=== PATIENT | male | born 1960 | race Caucasian/White ===

== ENCOUNTER 2022-03-28 04:15 | Day surgery (SDC) | payer OTHER ==
[2022-03-26 16:00] VITALS: BMI 27.3
[2022-03-28 09:21] VITALS: TEMP 98
[2022-03-28 09:58] VITALS: BP 127/73; PULSE 73; RESP 18
== END 2022-03-28 09:53 | disposition home or self-care (01) ==
LOC: JASU-ENDO 04:15
PROVIDERS: ATTEND Internal Medicine Gastroenterology
PROC: 0DJD8ZZ Inspection of Lower Intestinal Tract, Via Natural or Artificial Opening Endoscopic (ICD-10-PCS; principal; 2022-03-28 09:00)
DX: Z12.11 Encounter for screening for malignant neoplasm of colon (principal); K57.30 Diverticulosis of large intestine without perforation or abscess without bleeding; K64.8 Other hemorrhoids